=== PATIENT | female | born 1990 | race Caucasian/White ===

== ENCOUNTER 2017-01-05 07:42 | Outpatient (CLI) | payer MEDICAID | END 2017-01-05 07:43 | disposition home or self-care (01) | DX: N92.0 Excessive and frequent menstruation with regular cycle (principal) ==

== ENCOUNTER 2017-03-13 21:22 | Outpatient (CLI) | payer MEDICAID | END 2017-03-13 21:23 | disposition home or self-care (01) | LOC: LAB.R 21:22 | PROVIDERS: ATTEND Physician Assistant | DX: N39.0 Urinary tract infection, site not specified (principal) | CPT/HCPCS: 87491; 87591 ==

== ENCOUNTER 2017-10-31 07:55 | Outpatient (CLI) | payer MEDICAID ==
[2017-10-31 13:33] LABS: CALCIUM 9.2 mg/dL (8.5-10.3); CARBON DIOXIDE - CO2 25 mmol/L (21-32); CHLORIDE 104 mmol/L (101-111); GLUCOSE 81 mg/dL (70-100); SODIUM 134 mmol/L (135-145)
[2017-10-31 13:42] LABS: ALBUMIN 4.6 g/dL (3.2-5.5); ALBUMIN/GLOBULIN RATIO 2.3 (1.0-2.2); ALKALINE PHOSPHATASE 44 IU/L (42-121); ALT ALANINE AMINOTRANSFERASE 20 IU/L (10-60); AST ASPARTATE AMINOTRANSFERASE 21 IU/L (10-42); BILIRUBIN,TOTAL 0.8 mg/dL (0.2-1.0); BUN - BLOOD UREA NITROGEN 14 mg/dL (6-20); CREATININE 0.8 mg/dL (0.4-1.0); GFR - MDRD 87 (>89); TOTAL PROTEIN 6.6 g/dL (6.7-8.2)
[2017-10-31 13:44] LABS: HCG,QUALITATIVE BLOOD NEGATIVE
== END 2017-10-31 07:56 | disposition home or self-care (01) ==
LOC: LAB.N 07:55
PROVIDERS: ATTEND Nurse Practitioner Gerontology
DX: R10.9 Unspecified abdominal pain (principal)
CPT/HCPCS: 36415; 80053; 84703